=== PATIENT | female | born 1970 | race African-American/Black ===

== ENCOUNTER 2017-05-18 02:55 | Emergency (ER) | payer SELFPAY ==
[2017-05-18 03:15] VITALS: BP 134/91; BMI 32.0
--- NOTE | 2017-05-18 03:36 | DR.GENAD ---
HPI - PCP Primary Care Physician: PUENTE - Complaint/Symptoms Chief Complaint Doctors Comments: Patient complains of sore throat, frontal pain , nasal congestion, sharp pain in her ears, chills for the past 2 days getting worst today. States she is a patient of Dr. Medina in [place]. She denies tobacco or alcohol usage. States she has a problem with reflux and she is allergic to penicillin. she denies chest pain, SOB, cold or cough. States her appetite has been fine. She denies rash. States she has taken Keflex before. Chief Complaint:: SHARP PAIN IN EARS; SINUS PRESSURE; CHILLS Self Treatment fo Chief Complaint: AMARILYS-SELTZER PLUS - Nurses notes reviewed Nurses Notes Review: Yes - Source History Provided: Patient - Mode of Arrival Mode of Arrival: Ambulatory - Timing Onset of Chief Complaint: 05/17/17 Came on: Gradually - Duration Duration: Constant How lon Duration: Days - Location Location: sore throat, frontal headache - Severity Severity: Mild - Modifying Factors Worsens:: nothing Improves:: nothing PMH - PMH Past Medical History: Yes Past Medical History: GERD Past Surgical History: No Surgical History: - Family History History of Family Medical Conditions: No Family Medical History: Diabetes Mellitus, Hypertension - Social History Does patient currently use any type of tobacco product: No Have you used tobacco products in the last 12 months: No Type of Tobacco Use: None Does any household member use tobacco: No Alcohol Use: None Do you use any recreational Drugs:: No Lives With: Alone Lives Where: Home - infectious screening In the last 2 months have you had wt loss of >10#?: NO Have you had fever, night sweats or hemotysis?: No Have you traveled outside the country in the last 6 months?: No Isolation: Standard ROS - Review of Systems Constitutional: No Symptoms Reported, Chills Eyes: No Symptoms Reported. negative: See HPI, Eye Pain, Blurred Vision, Tearing, Discharge, Photophobia, Diplopia, Other ENTM: Ear Pain, Nose Discharge, Nose Congestion, Throat Pain. negative: No Symptoms Reported, See HPI, Ear Discharge, Pulling on Ears, Hearing Loss, Nose Pain, Epistaxis, Mouth Pain, Mouth Swelling, Loose Teeth, Drooling, Throat Swelling, Ear Foreign Body Respiratoy: No Symptoms Reported. negative: See HPI, Productive Cough, Non- Productive Cough, Moist Cough, Dry Cough, Hacking Cough, Barking Cough, Brassy Cough, Orthopnea, Short of Breath, Stridor, Wheezing, Hemoptysis, Other Cardiovascular: No Symptoms Reported. negative: See HPI, Chest Pain, Edema, Palpitations, Syncope, Cyanosis, Skin Mottling, Other Gastrointestinal/Abdominal: No Symptoms Reported. negative: See HPI, Abdominal Pain, Constipation, Diarrhea, Nausea, Vomiting, Food Intolerance, Other Genitourinary: No Symptoms Reported. negative: See HPI, Discharge, Dysuria, Frequency, Hematuria, Pain, Bleeding, Other Neurological: No Symptoms Reported Musculoskeletal: No Symptoms Reported Integumentary: No Symptoms Reported. negative: See HPI, Change in Color, Change in Hair/Nails, Dryness, Lesions, Lumps, Rash, Itching, Wound, Bruises, Juandice, Other Hematologic/Lymphatic: No Symptoms Reported Endocrine: No Symptoms Reported Psychiatric: No Symptoms Reported PE - Vital Signs Vitals: Temperature 98.4 F Pulse Rate 82 Respiratory Rate 22 Blood Pressure 134/91 O2 Sat by Pulse Oximetry 98 - General Limitations: No Limitations General Appearance: Alert, In Distress (slight) - Head Head Exam: Normal Inspection, Atraumatic, Normocephalic - Eyes Eye exam: Normal Appearance, PERRL, EOMI. negative: Scleral Icterus, Conjunctival Injection, Nystagmus, Miosis, Mydrasis, Periorbital Swelling, Periorbital Tenderness, Other - ENT ENT Exam: Normal Exam, Normal Oropharynx, Normal External Ear Exam, Mucous Membranes Moist (pharyngeal erythema; no exudated), TM's Normal Bilaterally External Ear Exam: Normal External Inspection TM/Canal Exam: Bilateral Normal Nose Exam: Normal Nose Exam Mouth Exam: Normal Inspection Throat Exam: Normal Inspection - Neck Neck Exam: Normal Inspection, Full ROM, Trachea Midline. negative: Tenderness, Meningismus, Lymphadenopathy, Thyromegaly, Other - Chest Chest Inspection: Normal Inspection, Symmetric Chest Wall Rise - Respiratory Respiratory Exam: Normal Lung Sounds Bilat Respiratory Exam: Bilateral Clear to Auscultation - Cardiovascular Cardiovascular Exam: Regular Rate, Normal Rhythm, Normal Heart Sounds - Abdominal Exam Abdominal Exam: Normal Inspection, Normal Bowel Sounds, Soft. negative: Distention, Tenderness, Guarding, Rebound, Rigidity, Dimnished Bowel Sounds, Hyperactive Bowel Sounds, Hypoactive Bowel Sounds, Organomegaly, Trauma, Incision, Ascites, Mass, Bruit, Pulsatile Mass, Hernia, Other Abdominal Tenderness: negative: RUQ, RLQ, LUQ, LLQ, Epigastrium, Suprapubic, Diffuse, Mild, Moderate, Severe, Other - Extremities Extremities Exam: Normal Inspection, Full ROM, Normal Capillary Refill. negative: Tenderness, Edema, Joint Swelling, Calf Tenderness, Other - Back Back Exam: Normal Inspection, Full ROM. negative: Tenderness, (R) CVA Tenderness, (L) CVA Tenderness, Muscle Spasm, Paraspinal Tenderness, Vertebral Tenderness, Rashes, (R) Sciatic Notch Tenderness, (L) Sciatic Notch Tendern, (R ) Straight Leg Raise, (L) Straight Leg Raise, Other - Neurologic Neurological Exam: Alert, Oriented X3, CN II-XII Intact, Normal Gait, Reflexes Normal - Psychiatric Psychiatric Exam: Normal Affect, Normal Mood - Skin Skin Exam: Warm, Dry, Intact, Normal Color ROR - Labs Reviewed Laboratory Results Reviewed?: Yes (all labs and x-ray results reviewed and discussed with patient) Laboratory: Streptococcus Screen Negative (NEGATIVE) 05/18/17 03:30 - Diagnosis Discharge Problem: Sinusitis, acute Qualifiers: Sinusitis location: frontal Pharyngitis Qualifiers: Pharyngitis/tonsillitis etiology: other specified organisms Qualified Code(s): J02.8 - Acute pharyngitis due to other specified organisms - Discharge Plan Disposition: 01 HOME, SELF-CARE Condition: Stable Prescriptions: Cetirizine HCl [Zyrtec Tab 10 mg] 10 mg PO DAILY #30 tab Ciprofloxacin HCl [CIPRO 500 MG TAB *] 500 mg PO Q12H #20 tab Fluticasone Nasal [place] [FLONASE NASAL SPRAY *] 2 sprays ENOSTRIL DAILY #1 each - Follow ups/Referrals Follow ups/Referrals: DORI PUENTE [Primary Care Provider] - 3 days - Instructions Instructions: Sinusitis, Adult, Ssek-ov-Yedo, Dysphagia
[2017-05-18] MEDS ORDERED: LEVAQUIN TAB 500 MG PO STA (03:57)
[2017-05-18] MEDS ORDERED: ZyrTEC TAB 10 MG PO STA (03:57)
[2017-05-18] MEDS ORDERED: ZyrTEC TAB 10 MG ONE (04:01)
[2017-05-18] MEDS ORDERED: LEVAQUIN TAB 500 MG ONE (04:02)
== END 2017-05-18 04:05 | disposition home or self-care (01) ==
LOC: ER 02:55
DX: J01.80 Other acute sinusitis (principal); J02.8 Acute pharyngitis due to other specified organisms
CPT/HCPCS: 87070; 87880; 99281; 99282

== ENCOUNTER 2017-08-22 06:52 | Emergency (ER) | payer BC ==
--- NOTE | 2017-08-22 07:04 | DR.GENAD ---
HPI - PCP Primary Care Physician: NLP - Complaint/Symptoms Chief Complaint Doctors Comments: "Swelling in my chest since 11:30 last night. " She denies palpitations but she admits to SOB. The pain is not radiating but she hurts all over her body. She admits to sore throat, cough, sniffling and runny nose. - Nurses notes reviewed Nurses Notes Review: Yes - Source History Provided: Patient - Timing Came on: Gradually PMH - PMH Past Medical History: GERD Past Surgical History: No Surgical History: - Family History Family Medical History: Diabetes Mellitus, Hypertension - Social History Do you use any recreational Drugs:: No ROS - Review of Systems Eyes: No Symptoms Reported ENTM: Nose Discharge, Nose Congestion, Throat Pain Respiratoy: No Symptoms Reported Cardiovascular: Chest Pain Gastrointestinal/Abdominal: No Symptoms Reported Genitourinary: No Symptoms Reported Neurological: No Symptoms Reported Musculoskeletal: Other (generalized muskulo-skeletal pain) Integumentary: No Symptoms Reported Hematologic/Lymphatic: No Symptoms Reported Endocrine: No Symptoms Reported Psychiatric: No Symptoms Reported All Other Systems: Reviewed and Negative PE - Vital Signs Vitals: Temperature 98.8 F Pulse Rate [Left Brachial] 88 Pulse Rate 93 Respiratory Rate 18 Blood Pressure [Left Arm] 126/76 Blood Pressure 118/64 O2 Sat by Pulse Oximetry 100 - General Limitations: No Limitations General Appearance: Alert, In No Apparent Distress - Head Head Exam: Normal Inspection - Eyes Eye exam: Normal Appearance - ENT ENT Exam: Normal Exam - Neck Neck Exam: Normal Inspection, Full ROM, Trachea Midline - Chest Chest Inspection: Normal Inspection, Symmetric Chest Wall Rise - Respiratory Respiratory Exam: Normal Lung Sounds Bilat - Cardiovascular Cardiovascular Exam: Regular Rate, Normal Rhythm, +S1, +S2 - Abdominal Exam Abdominal Exam: Normal Inspection, Normal Bowel Sounds, Soft - Extremities Extremities Exam: Normal Inspection, Full ROM, Normal Capillary Refill - Back Back Exam: Normal Inspection - Neurologic Neurological Exam: Alert, Oriented X3, CN II-XII Intact - Psychiatric Psychiatric Exam: Normal Affect - Skin Skin Exam: Warm, Dry, Intact, Normal Color ROR - Labs Reviewed Result Diagrams: 08/22/17 07:10 08/22/17 07:10 Laboratory: WBC 7.7 X10^3/uL (3.6-10.0) 08/22/17 07:10 RBC 4.54 X10^6/uL (3.5-5.4) 08/22/17 07:10 Hgb 12.5 g/dL (12.0-16.0) 08/22/17 07:10 Hct 37.5 % (36.0-47.0) 08/22/17 07:10 MCV 82.5 fL (80.0-100.0) 08/22/17 07:10 MCH 27.6 pg (27.0-34.0) 08/22/17 07:10 MCHC 33.4 g/dL (33.0-35.0) 08/22/17 07:10 RDW 14.5 % (11.6-16.5) 08/22/17 07:10 Plt Count 380 X10^3/uL (150.0-450.0) 08/22/17 07:10 MPV 7.4 fL (7.4-11.0) 08/22/17 07:10 Neut % 75.6 % (42.0-75.0) H 08/22/17 07:10 Lymph % 13.4 % (21.0-51.0) L 08/22/17 07:10 [place] % 8.3 % (0.0-13.0) 08/22/17 07:10 Eos % 2.2 % (0.9-2.9) 08/22/17 07:10 Baso % 0.5 % (0.2-1.0) 08/22/17 07:10 Neut # 5.8 x10^3/uL (2.2-4.8) H 08/22/17 07:10 Lymph # 1.0 X10^3/uL (1.3-2.9) L 08/22/17 07:10 [place] # 0.6 x10^3/uL (0.3-0.8) 08/22/17 07:10 Eos # 0.2 x10^3/uL (0.0-0.2) 08/22/17 07:10 Baso # 0.0 X10^3/uL (0.0-0.1) 08/22/17 07:10 Absolute Nucleated RBC 0.0 /100WBC 08/22/17 07:10 INR Target Range - 08/22/17 07:10 INR 0.99 (0.8-1.3) 08/22/17 07:10 PTT 29.2 SECONDS (22.9-36.5) 08/22/17 07:10 PTT Comment - 08/22/17 07:10 Sodium 138 mmol/L (136-145) 08/22/17 07:10 Corrected Sodium TNP 08/22/17 07:10 Potassium 3.6 mmol/L (3.5-5.1) 08/22/17 07:10 Chloride 103 mmol/L (98-107) 08/22/17 07:10 Carbon Dioxide 23.4 mmol/L (21-32) 08/22/17 07:10 BUN 12 mg/dL (7-18) 08/22/17 07:10 Creatinine 0.84 mg/dL (0.55-1.02) 08/22/17 07:10 Est GFR (MDRD) Af Amer > 60 (>60) 08/22/17 07:10 Est GFR (MDRD) Non-Af > 60 (>60) 08/22/17 07:10 Glucose 101 mg/dL (65-99) H 08/22/17 07:10 Calcium 8.8 mg/dL (8.5-10.1) 08/22/17 07:10 Corrected Calcium TNP 08/22/17 07:10 Magnesium 1.7 mg/dL (1.7-2.9) 08/22/17 07:10 Total Bilirubin 0.60 mg/dL (0.2-1.0) 08/22/17 07:10 AST 22 Units/L (15-37) 08/22/17 07:10 ALT 27 Units/L (12-78) 08/22/17 07:10 Alkaline Phosphatase 88 Units/L (46-116) 08/22/17 07:10 Creatine Kinase 134 Units/L (26-192) 08/22/17 07:10 CK-MB (CK-2) < 1.0 ng/mL (0-4.0) 08/22/17 07:10 CK/CKMB % Calc 0.8 % (<4) 08/22/17 07:10 Troponin I < 0.02 ng/mL (0-1.5) 08/22/17 07:10 Total Protein 7.9 g/dL (6.4-8.2) 08/22/17 07:10 Albumin 3.4 g/dL (3.4-5.0) 08/22/17 07:10 Globulin 4.5 g/dL (2.5-4.5) 08/22/17 07:10 Albumin/Globulin Ratio 0.8 Ratio (1.1-2.1) L 08/22/17 07:10 Influenza Type A (PCR) Positive (NEGATIVE) A 08/22/17 07:11 Influenza Type B (PCR) Negative (NEGATIVE) 08/22/17 07:11 Streptococcus Screen Negative (NEGATIVE) 08/22/17 07:11 - EKG Rate: 86 [place]: Normal Rhythm: NSR Block: None Hypertrophy: None ST: Nonsp - Discharge Plan Condition: Stable - Follow ups/Referrals Follow ups/Referrals: NFD,None [Primary Care Provider] - 3 days - Instructions
[2017-08-22 07:08] VITALS: BMI 34.5
--- NOTE | 2017-08-22 07:14 | RAD ---
Examination: Portable AP chest History: Chest pain Findings: Normal heart size, lungs markedly underinflated. Suspect compressive atelectasis at the rig ht base. There is no evidence for pneumothorax, pneumonia or large pleural effusion. Impression: Expiratory portable exam demonstrates no significant abnormality. Suspect atelectasis at the right base is attributed to elevated diaphragm. Reported By:
[2017-08-22 07:20] LABS: BASOPHILS % (AUTO) 0.5 % (0.2-1.0); EOSINOPHILS # (AUTO) 0.2 x10^3/uL (0.0-0.2); EOSINOPHILS % (AUTO) 2.2 % (0.9-2.9); HEMATOCRIT 37.5 % (36.0-47.0); HEMOGLOBIN 12.5 g/dL (12.0-16.0); LYMPHOCYTES % (AUTO) 13.4 % (21.0-51.0); MEAN CORPUSCULAR HEMOGLOBIN 27.6 pg (27.0-34.0); MEAN CORPUSCULAR HGB CONC 33.4 g/dL (33.0-35.0); MEAN CORPUSCULAR VOLUME 82.5 fL (80.0-100.0); MEAN PLATELET VOLUME 7.4 fL (7.4-11.0); MONOCYTES # (AUTO) 0.6 x10^3/uL (0.3-0.8); MONOCYTES % (AUTO) 8.3 % (0.0-13.0); NEUTROPHILS # (AUTO) 5.8 x10^3/uL (2.2-4.8); NEUTROPHILS % (AUTO) 75.6 % (42.0-75.0); PLATELET COUNT 380 X10^3/uL (150.0-450.0); RED BLOOD COUNT 4.54 X10^6/uL (3.5-5.4); RED CELL DISTRIBUTION WIDTH 14.5 % (11.6-16.5); WHITE BLOOD COUNT 7.7 X10^3/uL (3.6-10.0)
[2017-08-22 07:25] VITALS: BP 126/76
[2017-08-22 07:36] LABS: BLOOD UREA NITROGEN 12 mg/dL (7-18); CALCIUM 8.8 mg/dL (8.5-10.1); CARBON DIOXIDE 23.4 mmol/L (21-32); CHLORIDE 103 mmol/L (98-107); CREATININE 0.84 mg/dL (0.55-1.02); SODIUM 138 mmol/L (136-145); TROPONIN I < 0.02 ng/mL (0-1.5); eGFR BLACK RACES > 60 (>60); eGFR NON BLACK RACES > 60 (>60)
[2017-08-22 07:41] LABS: ALANINE AMINOTRANSFERASE 27 Units/L (12-78); ALBUMIN 3.4 g/dL (3.4-5.0); ALKALINE PHOSPHATASE 88 Units/L (46-116); ASPARTATE AMINO TRANSFERASE 22 Units/L (15-37); CKMB % 0.8 % (<4); CREATINE KINASE 134 Units/L (26-192); CREATINE KINASE MB < 1.0 ng/mL (0-4.0); MAGNESIUM 1.7 mg/dL (1.7-2.9); TOTAL PROTEIN 7.9 g/dL (6.4-8.2)
[2017-08-22] MEDS ORDERED: ZOFRAN INJ 4 MG VIAL IM ONE (08:00)
[2017-08-22] MEDS ORDERED: ZOFRAN INJ 4 MG VIAL ONE (08:02)
[2017-08-22] MEDS ORDERED: TAMIFLU PO ONE ×2 (08:11→08:15)
== END 2017-08-22 08:25 | disposition home or self-care (01) ==
LOC: ER 06:52
DX: J11.1 Influenza due to unidentified influenza virus with other respiratory manifestations (principal)
CPT/HCPCS: 36415; 71045; 80053; 82550; 82553; 83735; 84484; 85025; 85610; 85730; 87070; 87502; 87880; 93005; 93010; 99282; 99283; G9035; J2405

== ENCOUNTER 2017-12-02 23:03 | Emergency (ER) | payer BC ==
[2017-12-02 23:11] VITALS: BP 119/74; BMI 32.9
[2017-12-02] MEDS ORDERED: ZOFRAN SYRUP 4 MG UDC PO ONE (23:38)
[2017-12-02] MEDS ORDERED: BENTYL I.M. INJ 10 MG IM ONE ×2 (23:38→23:49)
--- NOTE | 2017-12-02 23:38 | DR.GENAD ---
HPI - PCP Primary Care Physician: AGATA - Complaint/Symptoms Chief Complaint Doctors Comments: History as stated Chief Complaint:: PT TREATED FOR HPYLOR A MONTH AGO PT C/O STOMACH CRAMPS DIARRHEA PT STATES" MY STOMACH IS IN KNOTS IT STARTED AT 6 TONIGHT" - Source History Provided: Patient - Mode of Arrival Mode of Arrival: Ambulatory - Timing Onset of Chief Complaint: 12/02/17 PMH - PMH Past Medical History: Yes Past Medical History: GERD Past Surgical History: No Surgical History: - Family History History of Family Medical Conditions: Yes Family Medical History: Diabetes Mellitus, Hypertension - Social History Does any household member use tobacco: No Alcohol Use: None Do you use any recreational Drugs:: No Lives With: Family Lives Where: Home - infectious screening In the last 2 months have you had wt loss of >10#?: NO Have you had fever, night sweats or hemotysis?: No Have you traveled outside the country in the last 6 months?: No Isolation: Standard ROS - Review of Systems Eyes: No Symptoms Reported ENTM: No Symptoms Reported Respiratoy: No Symptoms Reported Cardiovascular: No Symptoms Reported Gastrointestinal/Abdominal: Abdominal Pain Genitourinary: No Symptoms Reported Neurological: No Symptoms Reported Musculoskeletal: No Symptoms Reported Integumentary: No Symptoms Reported Hematologic/Lymphatic: No Symptoms Reported Endocrine: No Symptoms Reported Psychiatric: No Symptoms Reported All Other Systems: Reviewed and Negative PE - Vital Signs Vitals: Temperature 98.1 F Pulse Rate 76 Respiratory Rate 18 Blood Pressure [Left Arm] 126/76 Blood Pressure 119/74 O2 Sat by Pulse Oximetry 98 - General Limitations: No Limitations General Appearance: Alert, In No Apparent Distress - Head Head Exam: Normal Inspection, Atraumatic - Eyes Eye exam: Normal Appearance, PERRL, EOMI - ENT ENT Exam: Normal Exam External Ear Exam: Normal External Inspection TM/Canal Exam: Bilateral Normal Nose Exam: Normal Nose Exam Mouth Exam: Normal Inspection Throat Exam: Normal Inspection - Neck Neck Exam: Normal Inspection - Chest Chest Inspection: Normal Inspection - Respiratory Respiratory Exam: Normal Lung Sounds Bilat Respiratory Exam: Bilateral Clear to Auscultation - Cardiovascular Cardiovascular Exam: Regular Rate - Abdominal Exam Abdominal Exam: Soft, Other (hypoactive) Abdominal Tenderness: Mild - Extremities Extremities Exam: Normal Inspection - Back Back Exam: Normal Inspection, Full ROM - Neurologic Neurological Exam: Alert, Oriented X3, CN II-XII Intact - Psychiatric Psychiatric Exam: Normal Affect, Normal Mood - Skin Skin Exam: Warm, Dry, Intact Course - Reevaluation 1st: Improved - Education/Counseling Educated On: Treatment, Diagnosis, Prognosis - Diagnosis Discharge Problem: Acute diarrhea Gastritis Qualifiers: Gastritis type: unspecified gastritis Chronicity: acute Gastritis bleeding: without bleeding Qualified Code(s): K29.00 - Acute gastritis without bleeding - Discharge Plan Condition: Stable - Follow ups/Referrals Follow ups/Referrals: JAQUELINE PARMAR [Primary Care Provider] - 3 days - Instructions
[2017-12-02] MEDS ORDERED: ZOFRAN SYRUP 4 MG UDC ONE (23:49)
== END 2017-12-03 00:13 | disposition home or self-care (01) ==
LOC: ER 23:16
DX: K29.00 Acute gastritis without bleeding (principal); R19.7 Diarrhea, unspecified
CPT/HCPCS: 96372; 99282; J0500; Q0162